=== PATIENT | female | born 1995 | race Two or more races ===

== ENCOUNTER 2017-09-06 22:50 | Emergency (ER) | payer SELFPAY ==
[2017-09-06] MEDS: LIDOCAINE WITH 8.4% SOD BICARB 3 ML DISP.SYRIN. IJ (23:15)
== END 2017-09-06 23:30 | disposition home or self-care (01) ==
LOC: ER 22:50
DX: S61.512A Laceration without foreign body of left wrist, initial encounter (principal); W18.39XA Other fall on same level, initial encounter; Y93.89 Activity, other specified; Y92.89 Other specified places as the place of occurrence of the external cause; Y99.8 Other external cause status
CPT/HCPCS: 12001; 99283